=== PATIENT | female | born 1965 | race Caucasian/White ===

== ENCOUNTER 2017-09-18 18:29 | Emergency (ER) | payer SELFPAY ==
[~2017-09-18] VITALS: Ht 165.1 cm; Wt 63.0 kg
[2017-09-18] MEDS ORDERED: ACYC200C PO (19:17)
[2017-09-18] MEDS ORDERED: MONT10TA21 PO (19:17)
[2017-09-18] MEDS ORDERED: CELL2 PO (19:18)
[2017-09-18] MEDS ORDERED: EVEROLIMUS (19:18)
[2017-09-18] MEDS ORDERED: [UNRECOGNIZED DRUG - OTHER] (19:18)
[2017-09-18] MEDS ORDERED: AZIT500T3 PO (19:18)
[2017-09-18] MEDS ORDERED: PRED5TAB48 PO (19:18)
[2017-09-18] MEDS: KETOROLAC 60MG/2ML VIAL IM ONE (21:50)
[2017-09-19 00:29] VITALS: BP 121/74
== END 2017-09-19 00:29 | disposition home or self-care (01) ==
LOC: ER 20:34
DX: S42.92XA Fracture of left shoulder girdle, part unspecified, initial encounter for closed fracture (principal); M25.562 Pain in left knee; X58.XXXA Exposure to other specified factors, initial encounter; Y93.89 Activity, other specified; Y92.89 Other specified places as the place of occurrence of the external cause; Y99.8 Other external cause status
CPT/HCPCS: 73030; 73060; 73562; 96372; 99284; J1885; L3670